=== PATIENT | male | born 1990 | race Caucasian/White ===

== ENCOUNTER → 2017-02-13 | Outpatient (CLI) | payer OTHER ==
[2017-02-13 18:55] LABS: ALT 42 U/L (21-72); AST 30 U/L (17-59); Alkaline Phosphatase 80 U/L (38-126); Anion Gap 12 mmol/L; Blood Urea Nitrogen 15 mg/dL (9-20); Calcium 9.9 mg/dL (8.4-10.2); Carbon Dioxide 29 mmol/L (22-30); Chloride 103 mmol/L (98-107); Cholesterol 166 mg/dL (<200); Glucose 82 mg/dL (74-99); HDL Cholesterol 36 mg/dL (40-60); Non-African American GFR(MDRD) >60 (>60 ml/min/1.73 sqM); Potassium 4.1 mmol/L (3.5-5.1); Sodium 144 mmol/L (137-145); Total Bilirubin 0.6 mg/dL (0.2-1.3); Total Protein 8.2 g/dL (6.3-8.2); Triglycerides 79 mg/dL (<150)
[2017-02-13 19:06] LABS: Basophils # (A) 0.1 k/uL (0-0.2); Basophils % (A) 1 %; CH 29.3; CHCM 33.5; Eosinophils # (A) 0.1 k/uL (0-0.7); Eosinophils % (A) 2 %; HCT 43.7 % (39.0-53.0); HGB 14.2 gm/dL (13.0-17.5); Luc # (Auto) 0.08; Luc % (Auto) 1; Lymphocytes # (A) 1.5 k/uL (1.0-4.8); Lymphocytes % (A) 26 %; MCH 28.5 pg (25.0-35.0); MCHC 32.5 g/dL (31.0-37.0); MCV 87.8 fL (80.0-100.0); Mean Platelet Volume 9.9; Monocytes # (A) 0.6 k/uL (0-1.0); Monocytes % (A) 10 %; Neutrophils # (A) 3.4 k/uL (1.3-7.7); Neutrophils % (A) 60 %; RBC 4.97 m/uL (4.30-5.90); RDW 12.6 % (11.5-15.5); WBC 5.8 k/uL (3.8-10.6); WBC (Perox) 5.94
== END ==
LOC: MMGSC 10:11
PROVIDERS: ATTEND Family Medicine
DX: Z00.00 Encounter for general adult medical examination without abnormal findings (principal)
CPT/HCPCS: 36415; 80053; 80061; 84439; 84443; 85025

== ENCOUNTER → 2017-07-19 | Outpatient (CLI) | payer OTHER ==
--- NOTE | 2017-07-19 15:17 | XR ---
Left clavicle HISTORY: Pain, injury 2 views of the left clavicle correlated to chest x-ray 05/05/2014 No interval change. Bone mineralization maintained, alignment is normal. Left lung apex as visualized is normal. There is a spinal curvature. IMPRESSION: No fracture or dislocation is evident, follow-up as indicated.
--- NOTE | 2017-07-19 15:18 | XR ---
Lumbar spine HISTORY: Pain, low back pain 3 views of the lumbar spine Lumbar vertebral bodies show preserved height, alignment, and bone mineralization. Disc spaces are ma intained. Sclerotic density in the left ilium may represent bone island. IMPRESSION: No acute fracture or subluxation. Additional findings above.
--- NOTE | 2017-07-19 15:19 | XR ---
Thoracic spine HISTORY: Pain in thoracic spine 3 views of the thoracic spine Comparison the lumbar spine same date There is a mild spinal curvature. Thoracic vertebral bodies show preserved height, alignment, and bon e mineralization. Disc spaces are maintained. IMPRESSION: Mild spinal curvature.
== END | disposition home or self-care (01) ==
LOC: RADXRMAIN 13:51
PROVIDERS: ATTEND Family Medicine
DX: M43.9 Deforming dorsopathy, unspecified (principal); M54.2 Cervicalgia; M54.5 Low back pain; R07.2 Precordial pain
CPT/HCPCS: 72072; 72100

== ENCOUNTER → 2019-10-29 | Outpatient (CLI) | payer OTHER ==
[2019-10-29 16:46] LABS: HCT 42.2 % (39.0-53.0); HGB 14.3 gm/dL (13.0-17.5); MCH 29.2 pg (25.0-35.0); MCHC 33.8 g/dL (31.0-37.0); MCV 86.6 fL (80.0-100.0); Mean Platelet Volume 8.2; Platelet Count 239 k/uL (150-450); RBC 4.88 m/uL (4.30-5.90); RDW 12.3 % (11.5-15.5); WBC 6.6 k/uL (3.8-10.6)
[2019-10-30 00:27] LABS: T4, Free (Free Thyroxine) 1.2 ng/dL (0.80-1.80)
[2019-10-30 00:29] LABS: Albumin 4.8 g/dL (3.80-4.90); Anion Gap 9.1 mmol/L (4.00-12.00); Calcium 9.7 mg/dL (8.7-10.3); Carbon Dioxide 27.9 mmol/L (21.6-31.8); Chol/HDL Ratio 3.22; Globulin 2.4 g/dL (1.6-3.3); LDL Cholesterol,Calculated 110.4 mg/dL (0.0-131.0); Non-African American GFR(CKD) 102.7 (60.0-200.0); Potassium 3.6 mmol/L (3.5-5.5); Total Bilirubin 1.3 mg/dL (0.2-1.2); Total Protein 7.2 g/dL (6.2-8.2); VLDL Calculation 11.6 mg/dL (5.00-40.00)
== END | disposition home or self-care (01) ==
LOC: LABWHC1 15:38
PROVIDERS: ATTEND Family Medicine
DX: Z00.00 Encounter for general adult medical examination without abnormal findings (principal)
CPT/HCPCS: 36415; 80053; 80061; 84439; 84443; 85027

== ENCOUNTER 2022-02-21 20:19 | Emergency (ER) | payer BC ==
[2022-02-21 22:02] VITALS: RESP 18
--- NOTE | 2022-02-21 22:23 | XR ---
EXAMINATION TYPE: XR foot complete LT DATE OF EXAM: 02/21/2022 COMPARISON: NONE HISTORY: Pain TECHNIQUE: 3 views FINDINGS: Metatarsals are intact. I see no fracture nor dislocation. There are no erosions. Joint spa cele are normal. IMPRESSION: Negative left foot exam
[2022-02-21] MEDS ORDERED: TOPICAL SKIN ADHESIVE 1 EACH AMP TOPICAL ONE (22:56)
[2022-02-21] MEDS ORDERED: LIDOCAINE/EPINEPHR/TETRACAINE 5 ML BOTTLE TOPICAL ONE (22:56)
--- NOTE | 2022-02-21 23:21 | ED ---
Wound/Laceration HPI - General Chief Complaint: Wound/Laceration Stated Complaint: R foot injury Time Seen by Provider: 02/21/22 22:44 Source: patient, RN notes reviewed Mode of arrival: ambulatory - History of Present Illness Initial Comments: This is a 31-year-old male who presents to the emergency department for a laceration to the left foot. Patient states that he had a piece of glass on the right foot, and he used his left foot to try to get it off and in the process ended up lacerating the left foot. Patient states that this was very bloody and it is very painful to the touch. Last tetanus vaccine was less than a year ago. Extremity Location: Left: Foot Place: home Patient Tetanus UTD: Yes Context: accidental Treatments Prior to Arrival: bandage - Related Data Previous Rx's Medication Instructions Recorded Cephalexin [Keflex] 1,000 mg PO Q12HR 3 Days #12 cap 02/22/22 Allergies Allergy/AdvReac Type Severity Reaction Status Date / Time No Known Allergies Allergy Verified 02/21/22 23:06 Review of Systems ROS Statement: Those systems with pertinent positive or pertinent negative responses have been documented in the HPI. ROS Other: All systems not noted in ROS Statement are negative. Constitutional: Denies: fever, chills ENT: Denies: ear pain, throat pain Respiratory: Denies: cough, dyspnea Cardiovascular: Denies: chest pain, palpitations Gastrointestinal: Denies: abdominal pain, nausea, vomiting, diarrhea Genitourinary: Denies: urgency, dysuria Musculoskeletal: Denies: back pain Skin: Reports: other (laceration). Denies: rash Past Medical History Past Medical History: No Reported History History of Any Multi-Drug Resistant Organisms: None Reported Past Surgical History: Appendectomy Past Psychological History: Anxiety Past Alcohol Use History: None Reported Past Drug Use History: None Reported General Exam Limitations: no limitations General appearance: alert, in no apparent distress Respiratory exam: Present: normal lung sounds bilaterally. Absent: respiratory distress, wheezes, rales, rhonchi, stridor Cardiovascular Exam: Present: regular rate, normal rhythm, normal heart sounds. Absent: systolic murmur, diastolic murmur, rubs, gallop, clicks Neurological exam: Present: alert, oriented X3, CN II-XII intact Psychiatric exam: Present: normal affect, normal mood Skin exam: Present: other (Superficial 2 cm laceration on the dorsal surface of the left forefoot foot just inferior to toes 1 and 2.) Course Vital Signs 02/21/22 21:58 Temperature 97.7 F Pulse Rate 52 L Respiratory 18 Rate Blood Pressure 116/72 O2 Sat by Pulse 98 Oximetry Medical Decision Making - Medical Decision Making This is a 31-year-old male who presents the emergency department for a laceration to the left foot. X-ray obtained revealing no fractures, foreign bodies, or other acute changes. Exofin was used to close the wound and Steri- Strips were placed on top. Tetanus vaccine was less than a year ago and does not need to be updated. Given that this was a dirty piece of glass, will put the patient on a 3 day course of Keflex. Return precautions reviewed in depth, the patient is instructed to return to the emergency department with any new, worsening, or concerning symptoms. Patient verbalized understanding. This case was discussed in detail with the attending ED physician. Presentation, findings, and treatment plan discussed in detail as well. - Radiology Data Radiology results: report reviewed, image reviewed Disposition Clinical Impression: Laceration of foot Disposition: HOME SELF-CARE Instructions (If sedation given, give patient instructions): Laceration (ED), Skin Adhesive Care (ED) Additional Instructions: Return to the emergency department with any new, worsening, or concerning symptoms. Take the antibiotic as prescribed for 3 days. Follow up with your primary care provider in 1 to 2 days. Is patient prescribed a controlled substance at d/c from ED?: No Referrals: None,Stated [Primary Care Provider] - 1-2 days
[2022-02-22 00:33] VITALS: BP 120/68; PULSE 47; TEMP 97.8
== END 2022-02-22 00:34 | disposition home or self-care (01) ==
LOC: EC 20:19
DX: S91.311A Laceration without foreign body, right foot, initial encounter (principal); W25.XXXA Contact with sharp glass, initial encounter; Y92.009 Unspecified place in unspecified non-institutional (private) residence as the place of occurrence of the external cause
CPT/HCPCS: 99283

== ENCOUNTER 2022-05-12 14:58 | Emergency (ER) | payer BC, OTHER ==
[2022-05-12 15:15] VITALS: BP 125/74; PULSE 71; RESP 20; TEMP 98.1
[2022-05-12] MEDS ORDERED: BACITRACIN OINT 1 EACH PACKET TOPICAL ONE (16:25)
[2022-05-12] MEDS ORDERED: DIPH,PERTUS(ACELL)TETVAC-LF 0.5 ML VIAL IM ONE (16:25)
--- NOTE | 2022-05-12 16:26 | ED ---
Wound/Laceration HPI - General Chief Complaint: Wound/Laceration Stated Complaint: Work injury-hand Time Seen by Provider: 05/12/22 16:05 Source: patient Mode of arrival: ambulatory Limitations: no limitations - History of Present Illness Initial Comments: This is a pleasant, [id number] 32-year-old male who cut his left hand, palmar aspect on metallic equipment at work this morning. Patient was able to work the balance of shift. Unknown last tetanus. Denies any other injuries. Wound to the palmar aspect. Denies any significant pain. Patient did clean the wound initially. No distal paresthesias. No distal proximal injuries. Patient has no other significant health issues. No headache, no fever or chills, no changes in vision or hearing, no sore throat or difficulty with speech, no neck pain, no chest pain or shortness of breath, no abdominal pain, no nausea or vomiting, no changes in urination or bowel movements, no numbness or tingling, no extremity pain, no skin rashes or lesions. Past medical, surgical, social, and family history reviewed. - Related Data Previous Rx's Medication Instructions Recorded Cephalexin [Keflex] 1,000 mg PO Q12HR 3 Days #12 cap 02/22/22 Allergies Allergy/AdvReac Type Severity Reaction Status Date / Time No Known Allergies Allergy Verified 05/12/22 15:15 Review of Systems ROS Statement: Those systems with pertinent positive or pertinent negative responses have been documented in the HPI. ROS Other: All systems not noted in ROS Statement are negative. Past Medical History Past Medical History: No Reported History History of Any Multi-Drug Resistant Organisms: None Reported Past Surgical History: Appendectomy Past Psychological History: Anxiety Past Alcohol Use History: None Reported Past Drug Use History: None Reported General Exam Limitations: no limitations General appearance: alert, in no apparent distress Head exam: Present: atraumatic, normocephalic, normal inspection Eye exam: Present: normal appearance, EOMI Neck exam: Present: normal inspection Respiratory exam: Absent: respiratory distress GI/Abdominal exam: Absent: distended Left Elbow exam: Present: normal inspection, full ROM. Absent: tenderness Forearm Wrist exam: Present: normal inspection, full ROM. Absent: tenderness Hand Wrist exam: Present: full ROM, laceration (Superficial laceration, 2 cm to the palmar aspect left hand with a devitalized skin flap involving only the epidermis. No active bleeding. No foreign body.). Absent: normal inspection, tenderness, swelling, abrasion, ecchymosis, deformity, crepitus, dislocation, erythema, amputation, nail avulsion, subungual hematoma Neuro motor exam: Present: wrist extension intact, thumb opposition intact, thumb IP flexion intact, thumb adduction intact, fingers 2-5 abduction intact Neurosensory exam: Present: radial nerve intact, ulnar nerve intact, median nerve intact Vascular: Present: normal capillary refill. Absent: vascular compromise, Pallo Back exam: Present: normal inspection Neurological exam: Present: alert, oriented X3, CN II-XII intact. Absent: motor sensory deficit Psychiatric exam: Present: normal affect, normal mood Skin exam: Present: warm, dry, normal color. Absent: rash Course Vital Signs 05/12/22 15:13 Temperature 98.1 F Pulse Rate 71 Respiratory 20 Rate Blood Pressure 125/74 O2 Sat by Pulse 99 Oximetry Procedures - Procedures Initial comment: Left hand was prepped and draped in sterile fashion. Wound was cleansed thoroughly with antibacterial soap and water. A 2 x 2 centimeter area of devitalized tissue was debrided using sterile forceps and a #10 blade scalpel. Patient tolerated well. Antibiotic ointment applied. Sterile dressing applied. Medical Decision Making - Medical Decision Making Superficial laceration to palmar aspect with him requiring only debridement and wound care. No repair indicated. He Was updated. Patient counseled on wound care. Counseled on signs and symptoms of infection. Patient was told to return to the ER for any signs or symptoms worsen. Told to return immediately if any other problems arise. All questions answered. Treatment plan discussed. Patient in agreement Every effort has been made to ensure accuracy of this dictation. However, due to the limitations of electronic medical records and dictation devices, errors in charting still occur. Patient to follow-up with the occupational medicine clinic. [facility] Dr. Patel Disposition Clinical Impression: Laceration of left hand without foreign body Disposition: HOME SELF-CARE Condition: Good Instructions (If sedation given, give patient instructions): Acute Wound Care (ED) Additional Instructions: Follow-up with your regular physician as directed. Return to the ER immediately if any symptoms worsen, new symptoms arise, or any other problems develop. Follow-up with the occupational medicine clinic or [facility] as directed by your global human resources director Is patient prescribed a controlled substance at d/c from ED?: No Referrals: None,Stated [Primary Care Provider] - 1-2 days Time of Disposition: 16:26
== END 2022-05-12 16:45 | disposition home or self-care (01) ==
LOC: EC 14:58
DX: S61.412A Laceration without foreign body of left hand, initial encounter (principal); F41.9 Anxiety disorder, unspecified; W31.89XA Contact with other specified machinery, initial encounter
CPT/HCPCS: 12001; 90471; 90715; 99282

== ENCOUNTER 2022-10-02 05:35 | Emergency (ER) | payer BC ==
[2022-10-02 05:43] VITALS: BP 132/80; PULSE 69; RESP 18; TEMP 97.8
[2022-10-02] MEDS ORDERED: LIDOCAINE 1% INJ 10MG/ML (30 ML VIAL-PF) SQ ONE (06:18)
[2022-10-02] MEDS ORDERED: SULFAMETH-TMP DS STARTER PACK 2 TAB BTL PO STA (06:33)
[2022-10-02] MEDS ORDERED: CEPHALEXIN 500MG STARTER PACK 4 CAP BTL PO STA (06:33)
[2022-10-02] MEDS ORDERED: ACET/COD 300 MG/30 MG STARTER PACK 6 TAB BTL PO STA (06:34)
--- NOTE | 2022-10-02 06:35 | ED ---
Skin/Abscess/FB HPI - General Chief complaint: Skin/Abscess/Foreign Body Stated complaint: Abscess in groin area Time Seen by Provider: 10/02/22 06:00 Source: patient, RN notes reviewed Mode of arrival: ambulatory Limitations: no limitations - History of Present Illness Initial comments: 32-year-old male presents emergency Department chief complaint of abscess. Patient states he has a history of these. Patient states he had 1 in a similar location. Patient states it started a few days ago in the right groin. Patient states it is painful, red and swollen. Patient said no drainage has been doing warm compresses. Patient offers no other associated complaints. Patient has no history of MRSA NO KNOWN DRUG ALLERGIES. - Related Data Previous Rx's Medication Instructions Recorded Cephalexin [Keflex] 1,000 mg PO Q12HR 3 Days #12 cap 02/22/22 Cephalexin [Keflex] 500 mg PO Q6HR #40 cap 10/02/22 Sulfamethox-Tmp 800-160Mg [Bactrim 1 each PO Q12HR #20 tab 10/02/22 Ds] Allergies Allergy/AdvReac Type Severity Reaction Status Date / Time No Known Allergies Allergy Verified 10/02/22 05:43 Review of Systems ROS Statement: Those systems with pertinent positive or pertinent negative responses have been documented in the HPI. ROS Other: All systems not noted in ROS Statement are negative. Past Medical History Past Medical History: No Reported History History of Any Multi-Drug Resistant Organisms: None Reported Past Surgical History: Appendectomy Past Psychological History: Anxiety Smoking Status: Never smoker Past Alcohol Use History: None Reported Past Drug Use History: None Reported General Exam Limitations: no limitations General appearance: alert, in no apparent distress Head exam: Present: atraumatic, normocephalic, normal inspection Eye exam: Present: normal appearance, PERRL, EOMI. Absent: scleral icterus, conjunctival injection, periorbital swelling ENT exam: Present: normal exam, normal oropharynx, mucous membranes moist Neck exam: Present: normal inspection. Absent: tenderness, meningismus, lymphadenopathy Respiratory exam: Present: normal lung sounds bilaterally. Absent: respiratory distress, wheezes, rales, rhonchi, stridor Cardiovascular Exam: Present: regular rate, normal rhythm, normal heart sounds. Absent: systolic murmur, diastolic murmur, rubs, gallop, clicks GI/Abdominal exam: Present: soft, normal bowel sounds. Absent: distended, tenderness, guarding, rebound, rigid Skin exam: Present: warm, dry, intact, normal color, other (Right superior to right groin there is a 2 cm abscess minimal fluctuant, erythematous). Absent: rash Course Vital Signs 10/02/22 05:42 Temperature 97.8 F Pulse Rate 69 Respiratory 18 Rate Blood Pressure 132/80 O2 Sat by Pulse 99 Oximetry Procedures - Incision & Drainage Consent Obtained: written consent Site: other (Right suprapubic) Size (cm): 2 Anesthetic Used: lidocaine 1%, without epi Amount (mLs): 8 I&D Cleaning Method: Alcohol Wipe Sterile Field Used?: No Scalpel Used: #11 Irrigation Performed?: Yes I&D Drainage Obtained: Pus, Blood Culture Obtained?: Yes Patient Tolerated Procedure: well, no complications, other (Loculations were broken) Medical Decision Making - Medical Decision Making 32-year-old male presented from for abscess I&D was performed patient tolerated well we discuss warm compresses, patient was started on antibiotics, pain control return parameters discussed wound culture was obtained. Disposition Clinical Impression: Abscess, groin Disposition: HOME SELF-CARE Condition: Stable Instructions (If sedation given, give patient instructions): Abscess Incision and Drainage (ED) Additional Instructions: Please return to the Emergency Department if symptoms worsen or any other concerns. Prescriptions: Sulfamethox-Tmp 800-160Mg [Bactrim Ds] 1 each PO Q12HR #20 tab Cephalexin [Keflex] 500 mg PO Q6HR #40 cap Is patient prescribed a controlled substance at d/c from ED?: No Referrals: Evangelista Jaeger DO [Primary Care Provider] - 1-2 days Time of Disposition: 06:35
== END 2022-10-02 06:47 | disposition home or self-care (01) ==
LOC: EC 05:35
DX: L02.214 Cutaneous abscess of groin (principal); F41.9 Anxiety disorder, unspecified
CPT/HCPCS: 87070; 87205; 99283; 10060; J2001; 87077; 87186

== ENCOUNTER 2022-11-09 16:50 | Emergency (ER) | payer BC ==
[2022-11-09 16:54] VITALS: BP 129/80; PULSE 82; RESP 16; TEMP 98.6
--- NOTE | 2022-11-09 17:15 | ED ---
Upper Extremity HPI - General Chief Complaint: Extremity Injury, Upper Stated Complaint: R. Elbow Pain Time Seen by Provider: 11/09/22 17:02 Source: patient, RN notes reviewed Mode of arrival: ambulatory Limitations: no limitations - History of Present Illness Initial Comments: This is a pleasant, [id number] 32-year-old male who presents emergent department complaining of right elbow pain for the last 6 months. Patient indicating this pain at the area of the lateral epicondyle which is exacerbated by movement and palpation. Patient does work as a Head and performs repetitive motion. Patient states he's been taking [id number]-[id number] medication. Wearing a cup or sleeve. And wearing a tennis elbow strap. He did see his regular physician previously and was told he had tendinitis. No chest pain or shortness of breath. No fever or chills. No break in skin integrity. No subsequent or direct trauma. No significant past medical history. No alcohol or drug abuse. Nonsmoker. MD Complaint: Injury to:: right, elbow - Related Data Previous Rx's Medication Instructions Recorded Cephalexin [Keflex] 1,000 mg PO Q12HR 3 Days #12 cap 02/22/22 Cephalexin [Keflex] 500 mg PO Q6HR #40 cap 10/02/22 Sulfamethox-Tmp 800-160Mg [Bactrim 1 each PO Q12HR #20 tab 10/02/22 Ds] Allergies Allergy/AdvReac Type Severity Reaction Status Date / Time No Known Allergies Allergy Verified 10/02/22 05:43 Review of Systems ROS Statement: Those systems with pertinent positive or pertinent negative responses have been documented in the HPI. ROS Other: All systems not noted in ROS Statement are negative. Past Medical History Past Medical History: No Reported History History of Any Multi-Drug Resistant Organisms: None Reported Past Surgical History: Appendectomy Past Psychological History: Anxiety Smoking Status: Never smoker Past Alcohol Use History: None Reported Past Drug Use History: None Reported General Exam - General Exam Comments Initial Comments: Patient in no distress. Vital signs stable, patient afebrile. Patient does not appear to be ill or toxic. Limitations: no limitations General appearance: alert, in no apparent distress Head exam: Present: atraumatic, normocephalic, normal inspection Eye exam: Present: normal appearance, EOMI Neck exam: Present: normal inspection Respiratory exam: Present: normal lung sounds bilaterally. Absent: respiratory distress, wheezes, rales, rhonchi, stridor Cardiovascular Exam: Present: regular rate, normal rhythm, normal heart sounds. Absent: systolic murmur, diastolic murmur, rubs, gallop, clicks GI/Abdominal exam: Absent: distended Extremities exam: Present: tenderness (Tenderness over the lateral epicondyle.), other (Increased pain with dorsiflexion of the right wrist as well as supination. No forearm or upper arm tenderness otherwise. No wrist tenderness. Pulses 2+ out of 4. Capillary refill less than 2 seconds. No erythema. No break in skin integrity) Course Vital Signs 11/09/22 16:51 Temperature 98.6 F Pulse Rate 82 Respiratory 16 Rate Blood Pressure 129/80 O2 Sat by Pulse 98 Oximetry Medical Decision Making - Medical Decision Making Was pt. sent in by a medical professional or institution? @ -No Did you speak to anyone other than the patient for history? @ -no Did you review nursing and triage notes? @ -Agree Were old charts reviewed? @ -no Differential Diagnosis? @ -Given the patient's presenting symptomology, right lateral epicondylitis most probable. Occult fracture possible. Tendon tear possible. Does not appear to be consistent with infectious etiology. EKG interpreted by me (3pts min.)? @ -Not applicable X-rays interpreted by me (1pt min.)? @ -X-rays of the right elbow independently interpreted by me show no evidence of acute fracture. No dislocation. No soft tissue changes. No osseous lesion. I did review the radiologist's interpretation. CT interpreted by me (1pt min.)? @ -[none] U/S interpreted by me (1pt. min.)? @ -[none] What testing was considered but not performed? (CT, X-rays, U/S, labs)? Why? @Not applicable What meds were considered but not given? Why? @ -[none] Did you discuss the management of the patient with other professionals? @ -None Did you reconcile home meds? @ -[none] Was smoking cessation discussed for >3mins.? @ -[none] Was critical care preformed (if so, how long)? @ -[none] Were there social determinants of health that impacted care today? How? (Homelessness, low income, unemployed, alcoholism, drug addiction, transportation, low edu. Level, literacy, decrease access to med. care, correction, rehab)? @ -No Was there de-escalation of care discussed even if they declined? (Discuss DNR or withdrawal of care, Hospice)? @ -no What co-morbidities impacted this encounter? (DM, HTN, Smoking, COPD, CAD, Cancer, CVA, Hep., AIDS, mental health diagnosis, sleep apnea, morbid obesity)? @ -none Was patient admitted / discharged? @ -Discharged Undiagnosed new problem with uncertain prognosis? @ -[none] Drug Therapy requiring intensive monitoring for toxicity (Heparin, Nitro, Insulin, Cardizem)? @ -[none] Were any procedures done? @ -[none] Diagnosis/symptom? @ -[default] Acute, or Chronic, or Acute on Chronic? @ -Chronic right elbow pain Uncomplicated (without systemic symptoms) or Complicated (systemic symptoms)? @ -Uncomplicated Side effects of treatment? @ -[none] Exacerbation, Progression, or Severe Exacerbation] @ -[no] Poses a threat to life or bodily function? @ -[no] Diagnosis/symptom? @ -Chronic right lateral epicondylitis Acute, or Chronic, or Acute on Chronic? @ -Chronic Uncomplicated (without systemic symptoms) or Complicated (systemic symptoms)? @ -Complicated Side effects of treatment? @ -[none] Exacerbation, Progression, or Severe Exacerbation] @ -[no] Poses a threat to life or bodily function? @ -[no] Patient symptomology going on for several months. We will treat conservatively and referred the patient for orthopedic evaluation. Patient concurs with this treatment plan. Voiced understanding. Follow-up with your regular physician as directed. Return to the ER immediately if any symptoms worsen, new symptoms arise, or any other problems develop. Disposition Clinical Impression: Right lateral epicondylitis, Dislocation of shoulder region Disposition: HOME SELF-CARE Condition: Good Instructions (If sedation given, give patient instructions): Tennis Elbow (ED) Additional Instructions: Call tomorrow morning to set up a follow-up appointment with the orthopedic physician. Continue the tennis elbow strap. Return to the ER immediately if any symptoms worsen, new symptoms arise, or any other problems develop. Is patient prescribed a controlled substance at d/c from ED?: No Referrals: Lena Castanon NPC [Nurse Practitioner] - 11/13/22 Time of Disposition: 17:54
--- NOTE | 2022-11-09 17:34 | XR ---
EXAMINATION TYPE: XR elbow complete RT DATE OF EXAM: 11/09/2022 CLINICAL HISTORY: Pain. TECHNIQUE: Frontal, lateral and oblique images of the right elbow are obtained. COMPARISON: None FINDINGS: There is no acute fracture/dislocation evident in the right elbow. No abnormal fat pad si gns are seen. The overlying soft tissue appears unremarkable. IMPRESSION: Unremarkable study.
== END 2022-11-09 18:07 | disposition home or self-care (01) ==
LOC: EC 16:50
DX: S43.004A Unspecified dislocation of right shoulder joint, initial encounter (principal); M77.11 Lateral epicondylitis, right elbow; F41.9 Anxiety disorder, unspecified; Z90.49 Acquired absence of other specified parts of digestive tract; X58.XXXA Exposure to other specified factors, initial encounter
CPT/HCPCS: 99283

== ENCOUNTER 2023-04-03 17:37 | Emergency (ER) | payer BC ==
[2023-04-03 20:33] LABS: Appearance,Urine Clear (Clear); Bilirubin,Urine Negative (Negative); Blood,Urine Negative (Negative); Color,Urine Yellow; Glucose,Urine (UA) Negative (Negative); Ketones,Urine Negative (Negative); Leukocyte Esterase,Urine Negative (Negative); Nitrite,Urine Negative (Negative); Protein,Urine Trace (Negative); Specific Gravity,Urine 1.032 (1.001-1.035)
--- NOTE | 2023-04-03 20:56 | ED ---
General Adult HPI - General Chief complaint: Urogenital Stated complaint: poss hemorrhoids Time Seen by Provider: 04/03/23 19:33 Source: patient Mode of arrival: EMS Limitations: no limitations - History of Present Illness Initial comments: 5-year-old male with no significant past medical history presenting with a chief complaint of hemorrhoid. Patient states over the past 2 or 3 days has had a hemorrhoid. Has recently started to use preparation H today. She notes that he has a "tingly" feeling at end of his penis. Denies dysuria hematuria or dis charge. Chest pain shortness of breath. No other complaints. - Related Data Home Medications Medication Instructions Recorded Confirmed No Known Home Medications 04/03/23 04/03/23 Allergies Allergy/AdvReac Type Severity Reaction Status Date / Time No Known Allergies Allergy Verified 10/02/22 05:43 Review of Systems ROS Statement: Those systems with pertinent positive or pertinent negative responses have been documented in the HPI. ROS Other: All systems not noted in ROS Statement are negative. Past Medical History Past Medical History: No Reported History History of Any Multi-Drug Resistant Organisms: None Reported Past Surgical History: Appendectomy Past Psychological History: Anxiety, Depression Smoking Status: Never smoker Past Alcohol Use History: None Reported Past Drug Use History: None Reported General Exam Limitations: no limitations General appearance: alert Head exam: Present: atraumatic, normocephalic Eye exam: Present: normal appearance Respiratory exam: Present: normal lung sounds bilaterally Cardiovascular Exam: Present: regular rate, normal rhythm GI/Abdominal exam: Present: soft Rectal exam: Present: other (Exam shows a nonthrombosed external hemorrhoid.) Neurological exam: Present: alert, oriented X3 Psychiatric exam: Present: normal affect, normal mood Skin exam: Present: warm, dry Course Vital Signs 04/03/23 17:45 Temperature 98.3 F Pulse Rate 59 L Respiratory 18 Rate Blood Pressure 131/76 O2 Sat by Pulse 99 Oximetry Medical Decision Making - Medical Decision Making Was pt. sent in by a medical professional or institution (HENRI Garcia, FENCE MANUFACTURE SUPERVISOR, urgent care, hospital, or usp...) When possible be specific @ -No Did you speak to anyone other than the patient for history (EMS, parent, family, police, friend...)? What history was obtained from this source @ -No Did you review nursing and triage notes (agree or disagree)? Why? @ -I reviewed and agree with nursing and triage notes Were old charts reviewed (outside hosp., previous admission, EMS record, old EKG, old radiological studies, urgent care reports/EKG's, usp records)? Report findings @ -No old charts were reviewed Differential Diagnosis (chest pain, altered mental status, abdominal pain women, abdominal pain men, vaginal bleeding, weakness, fever, dyspnea, syncope, headache, dizziness, GI bleed, back pain, seizure, CVA, palpatations, mental health, musculoskeletal)? @ -UTI, venereal disease, thrombosed hemorrhoid. This is not meant to be an all-inclusive list EKG interpreted by me (3pts min.). @ -None X-rays interpreted by me (1pt min.). @ -None done CT interpreted by me (1pt min.). @ -None done U/S interpreted by me (1pt. min.). @ -None done What testing was considered but not performed or refused? (CT, X-rays, U/S, labs)? Why? @ -None What meds were considered but not given or refused? Why? @ -None Did you discuss the management of the patient with other professionals (professionals i.e. , PA, FENCE MANUFACTURE SUPERVISOR, lab, RT, psych nurse, social media sr strategy manager, local area network systems adminstrator, teacher, special service officer, case assembler)? Give summary @ -No Was smoking cessation discussed for >3mins.? @ -No Was critical care preformed (if so, how long)? @ -No Were there social determinants of health that impacted care today? How? (Homelessness, low income, unemployed, alcoholism, drug addiction, transportation, low edu. Level, literacy, decrease access to med. care, nursing home, rehab)? @ -No Was there de-escalation of care discussed even if they declined (Discuss DNR or withdrawal of care, Hospice)? DNR status @ -No What co-morbidities impacted this encounter? (DM, HTN, Smoking, COPD, CAD, Cancer, CVA, ARF, Chemo, Hep., AIDS, mental health diagnosis, sleep apnea, morbid obesity)? @ -None Was patient admitted / discharged? Hospital course, mention meds given and route, prescriptions, significant lab abnormalities, going to OR and other pertinent info. @ -Discharged. Exam findings as above. UA showed no evidence of infection. Patient advised to continue Preparation H, in addition with of sitz bath, witch vladislav pads, and increasing fiber intake with Metamucil/fruits and vegetables. Discharged in stable condition. Discussed return precautions patient verbalized agreement. Undiagnosed new problem with uncertain prognosis? @ -No Drug Therapy requiring intensive monitoring for toxicity (Heparin, Nitro, Insulin, Cardizem)? @ -No Were any procedures done? @ -No Diagnosis/symptom? @ -External hemorrhoid, nonthrombosed Acute, or Chronic, or Acute on Chronic? @ -Acute Uncomplicated (without systemic symptoms) or Complicated (systemic symptoms)? @ -Uncomplicated Side effects of treatment? @ -No Exacerbation, Progression, or Severe Exacerbation? @ -No Poses a threat to life or bodily function? How? (Chest pain, USA, ID, pneumonia, PE, COPD, DKA, ARF, appy, cholecystitis, CVA, Diverticulitis, Homicidal, Suicidal, threat to staff... and all critical care pts) @ -No - Lab Data Lab Results 04/03/23 Range/Units 20:04 Urine Color Yellow Urine Appearance Clear (Clear) Urine pH 6.0 (5.0-8.0) Ur Specific [place] 1.032 (1.001-1.035) Urine Protein Trace H (Negative) Urine Glucose (UA) Negative (Negative) Urine Ketones Negative (Negative) Urine Blood Negative (Negative) Urine Nitrite Negative (Negative) Urine Bilirubin Negative (Negative) Urine Urobilinogen 2.0 (<2.0) mg/dL Ur Leukocyte Esterase Negative (Negative) Disposition Clinical Impression: Hemorrhoid Disposition: HOME SELF-CARE Condition: Good Instructions (If sedation given, give patient instructions): Hemorrhoids (ED) Is patient prescribed a controlled substance at d/c from ED?: No Referrals: Evangelista Jaeger DO [Primary Care Provider] - 1-2 days Time of Disposition: 20:56
[2023-04-03 21:03] VITALS: BP 125/70; PULSE 64; RESP 16; TEMP 98.7
== END 2023-04-03 21:27 | disposition home or self-care (01) ==
LOC: EC 17:37
DX: K64.4 Residual hemorrhoidal skin tags (principal)
CPT/HCPCS: 81003; 99283

== ENCOUNTER 2023-07-21 20:31 | Emergency (ER) | payer BC ==
[2023-07-21 20:42] VITALS: RESP 20; TEMP 99.5
[2023-07-21] MEDS ORDERED: SODIUM CHLORIDE 0.9% 1,000 ML IV ONE (21:22)
--- NOTE | 2023-07-21 22:00 | ED ---
General Adult HPI - General Chief complaint: Skin/Abscess/Foreign Body Stated complaint: Ingrown hair Time Seen by Provider: 07/21/23 20:43 Source: patient, RN notes reviewed Mode of arrival: ambulatory Limitations: no limitations - History of Present Illness Initial comments: 33-year-old male with no significant past medical history presents the emergency department with a chief complaint of abscess. Patient reports abscess to left glute. He reports worsening abscess for 3 days. It is painful to touch. He denies any injury or trauma. He has had this about once a year for the last couple years. He denies any self excision. Denies any known fevers, chills. He is not taken anything for his symptoms. He has been applying warm compresses without symptomatic relief. - Related Data Previous Rx's Medication Instructions Recorded Cephalexin [Keflex] 500 mg PO Q6HR #40 cap 07/21/23 Sulfamethox-Tmp 800-160Mg [Bactrim 1 each PO Q12HR #20 tab 07/21/23 Ds] Allergies Allergy/AdvReac Type Severity Reaction Status Date / Time No Known Allergies Allergy Verified 07/21/23 20:35 Review of Systems ROS Statement: Those systems with pertinent positive or pertinent negative responses have been documented in the HPI. ROS Other: All systems not noted in ROS Statement are negative. Past Medical History Past Medical History: No Reported History History of Any Multi-Drug Resistant Organisms: None Reported Past Surgical History: Appendectomy Past Psychological History: Anxiety, Depression Smoking Status: Never smoker Past Alcohol Use History: Occasional Past Drug Use History: None Reported General Exam - General Exam Comments Initial Comments: General: Alert, in no acute distress Head: atraumatic normocephalic. Eyes PERRL, EOMI intact, mucous membranes moist Respiratory: Lungs clear to auscultation bilaterally Cardiovascular: The cardiac Abdominal: Soft without guarding or rebound Extremities: Normal inspection with full range of motion and normal capillary refill Neuroogic: alert and oriented 3, CN II-XII intact, able to ambulate with steady gait Skin: warm dry and intact with normal color, 4cm x4 cm circular erythematous hard immobile, tender area to left flute. Left groin with 1 x 1 cm circular nontender, non-Mobile lesion without erythema Limitations: no limitations Course Vital Signs 07/21/23 07/22/23 20:32 00:51 Temperature 99.5 F Pulse Rate 115 H 98 Respiratory 20 20 Rate Blood Pressure 116/70 100/60 O2 Sat by Pulse 100 98 Oximetry - Reevaluation(s) Reevaluation #1: 07/22/23 00:03 Patient reevaluated. She is agreeable with the plan for discharge home with outpatient ABX Medical Decision Making - Medical Decision Making Was pt. sent in by a medical professional or institution (, HENRI, PRODUCTION LEADER, urgent care, hospital, or longterm...) When possible be specific @ -[No] Did you speak to anyone other than the patient for history (EMS, parent, family, police, friend...)? What history was obtained from this source @ -[No] Did you review nursing and triage notes (agree or disagree)? Why? @ -[I reviewed and agree with nursing and triage notes] Were old charts reviewed (outside hosp., previous admission, EMS record, old EKG, old radiological studies, urgent care reports/EKG's, longterm records)? Report findings @ -[No old charts were reviewed] Differential Diagnosis (chest pain, altered mental status, abdominal pain women, abdominal pain men, vaginal bleeding, weakness, fever, dyspnea, syncope, h eadache, dizziness, GI bleed, back pain, seizure, CVA, palpatations, mental health, musculoskeletal)? @ -[not applicable] EKG interpreted by me (3pts min.). @ -[As above] X-rays interpreted by me (1pt min.). @ -[None done] CT interpreted by me (1pt min.). @ -yes, below U/S interpreted by me (1pt. min.). @ -[None done] What testing was considered but not performed or refused? (CT, X-rays, U/S, labs)? Why? @ -[None] What meds were considered but not given or refused? Why? @ -[None] Did you discuss the management of the patient with other professionals (professionals i.e. HENRI Garcia, PRODUCTION LEADER, lab, RT, psych nurse, social and human services assistant, immersion metal cleaner, teacher, traffic division commanding officer, case folder)? Give summary @ -[No] Was smoking cessation discussed for >3mins.? @ -[No] Was critical care preformed (if so, how long)? @ -[No] Were there social determinants of health that impacted care today? How? (Homelessness, low income, unemployed, alcoholism, drug addiction, transportation, low edu. Level, literacy, decrease access to med. care, prison, rehab)? @ -[No] Was there de-escalation of care discussed even if they declined (Discuss DNR or withdrawal of care, Hospice)? DNR status @ -[No] What co-morbidities impacted this encounter? (DM, HTN, Smoking, COPD, CAD, Ca ncer, CVA, ARF, Chemo, Hep., AIDS, mental health diagnosis, sleep apnea, morbid obesity)? @ -[None] Was patient admitted / discharged? Hospital course, mention meds given and route, prescriptions, significant lab abnormalities, going to OR and other pertinent info. @ -Discharge. This is a pleasant 33-year-old male with no signifi cant past medical history presents the emergency department with abscess. Patient had a thorough history and physical exam performed. Physical exam reveals a 4 x 4 circular area erythema that is tender and hard immobile. Nonfluctuant. Patient had laboratory studies which revealed WBC 12.5, hemog lobin 13.2 sodium 137, potassium 2.[address] does not reveal any evidence of gluteal perineal abscess there is slight minus change ingesting along the posterior left buttock there is also fullness tingling to the left inguinal region with enlarged lymph nodes I discussed results in detail with the patient verbalized understanding all questions were addressed. He is agreeable with the plan for outpatient antibiotics. Patient given Keflex and Bactrim on the ED. Patient provided a prescription for Keflex and Bactrim upon discharge. Strict Return precautions were discussed including high fever, worsening abscess, or redness that developed to the area. Patient then started to return to the emergency department is abscess or symptoms worsen. Case discussed with IVONNE Meraz who agrees with plan of care Undiagnosed new problem with uncertain prognosis? @ -[No] Drug Therapy requiring intensive monitoring for toxicity (Heparin, Nitro, Insulin, Cardizem)? @ -[No] Were any procedures done? @ -[No] Diagnosis/symptom? @ -Left Gluteal abscess Acute, or Chronic, or Acute on Chronic? @ -Acute Uncomplicated (without systemic symptoms) or Complicated (systemic symptoms)? @ -Uncomplicated Side effects of treatment? @ -[No] Exacerbation, Progression, or Severe Exacerbation? @ -[No] Poses a threat to life or bodily function? How? (Chest pain, USA, [place], pneumonia, PE, COPD, DKA, ARF, appy, cholecystitis, CVA, Diverticulitis, Homicidal, Suicidal, threat to staff... and all critical care pts) @ -Low likelihood - Lab Data Result diagrams: 07/21/23 21:44 07/21/23 21:44 Lab Results 07/21/23 07/21/23 07/21/23 Range/Units 21:44 21:44 21:44 WBC 12.5 H (3.8-10.6) k/uL RBC 4.49 (4.30-5.90) m/uL Hgb 13.2 (13.0-17.5) gm/dL Hct 38.8 L (39.0-53.0) % MCV 86.3 (80.0-100.0) fL MCH 29.5 (25.0-35.0) pg MCHC 34.2 (31.0-37.0) g/dL RDW 12.1 (11.5-15.5) % Plt Count 218 (150-450) k/uL MPV 8.5 Neutrophils % 80 % Lymphocytes % 11 % Monocytes % 7 % Eosinophils % 1 % Basophils % 1 % Neutrophils # 10.0 H (1.3-7.7) k/uL Lymphocytes # 1.4 (1.0-4.8) k/uL Monocytes # 0.9 (0-1.0) k/uL Eosinophils # 0.1 (0-0.7) k/uL Basophils # 0.1 (0-0.2) k/uL Sodium 137 (137-145) mmol/L Potassium 3.6 (3.5-5.1) mmol/L Chloride 101 (98-107) mmol/L Carbon Dioxide 32 H (22-30) mmol/L Anion Gap 4 mmol/L BUN 10 (9-20) mg/dL Creatinine 0.66 (0.66-1.25) mg/dL Est GFR (CKD-EPI)AfAm >90 (>60 ml/min/1.73 sqM) Est GFR (CKD-EPI)NonAf >90 (>60 ml/min/1.73 sqM) Glucose 83 (74-99) mg/dL Calcium 8.7 (8.4-10.2) mg/dL Total Bilirubin 0.6 (0.2-1.3) mg/dL AST 26 (17-59) U/L ALT 37 (4-49) U/L Alkaline Phosphatase 53 (38-126) U/L Total Protein 6.0 L (6.3-8.2) g/dL Albumin 3.6 (3.5-5.0) g/dL Urine Color Yellow Urine Appearance Clear (Clear) Urine pH 6.0 (5.0-8.0) Ur Specific [place] 1.029 (1.001-1.035) Urine Protein Trace H (Negative) Urine Glucose (UA) Negative (Negative) Urine Ketones Negative (Negative) Urine Blood Negative (Negative) Urine Nitrite Negative (Negative) Urine Bilirubin Negative (Negative) Urine Urobilinogen <2.0 (<2.0) mg/dL Ur Leukocyte Esterase Negative (Negative) Disposition Clinical Impression: Abscess, gluteal, left Disposition: HOME SELF-CARE Condition: Stable Instructions (If sedation given, give patient instructions): Abscess (ED) Prescriptions: Sulfamethox-Tmp 800-160Mg [Bactrim Ds] 1 each PO Q12HR #20 tab Cephalexin [Keflex] 500 mg PO Q6HR #40 cap Is patient prescribed a controlled substance at d/c from ED?: No Referrals: Evangelista Jaeger DO [Primary Care Provider] - 1-2 days Time of Disposition: 11:58
[2023-07-21 22:39] LABS: ALT 37 U/L (4-49); AST 26 U/L (17-59); African American GFR (CKD) >90 (>60 ml/min/1.73 sqM); Albumin 3.6 g/dL (3.5-5.0); Alkaline Phosphatase 53 U/L (38-126); Anion Gap 4 mmol/L; Blood Urea Nitrogen 10 mg/dL (9-20); Calcium 8.7 mg/dL (8.4-10.2); Carbon Dioxide 32 mmol/L (22-30); Chloride 101 mmol/L (98-107); Glucose 83 mg/dL (74-99); Non-African American GFR(CKD) >90 (>60 ml/min/1.73 sqM); Potassium 3.6 mmol/L (3.5-5.1); Sodium 137 mmol/L (137-145); Total Bilirubin 0.6 mg/dL (0.2-1.3)
[2023-07-21 22:42] LABS: Basophils # (A) 0.1 k/uL (0-0.2); Basophils % (A) 1 %; Eosinophils # (A) 0.1 k/uL (0-0.7); Eosinophils % (A) 1 %; HCT 38.8 % (39.0-53.0); HGB 13.2 gm/dL (13.0-17.5); Lymphocytes # (A) 1.4 k/uL (1.0-4.8); Lymphocytes % (A) 11 %; MCH 29.5 pg (25.0-35.0); MCHC 34.2 g/dL (31.0-37.0); MCV 86.3 fL (80.0-100.0); Mean Platelet Volume 8.5; Monocytes # (A) 0.9 k/uL (0-1.0); Monocytes % (A) 7 %; Neutrophils % (A) 80 %; Platelet Count 218 k/uL (150-450); RBC 4.49 m/uL (4.30-5.90); RDW 12.1 % (11.5-15.5); WBC 12.5 k/uL (3.8-10.6)
[2023-07-21 23:27] LABS: Appearance,Urine Clear (Clear); Bilirubin,Urine Negative (Negative); Blood,Urine Negative (Negative); Color,Urine Yellow; Glucose,Urine (UA) Negative (Negative); Ketones,Urine Negative (Negative); Leukocyte Esterase,Urine Negative (Negative); Nitrite,Urine Negative (Negative); Protein,Urine Trace (Negative); Specific Gravity,Urine 1.029 (1.001-1.035); Urobilinogen,Urine <2.0 mg/dL (<2.0)
[2023-07-21] MEDS ORDERED: cefTRIAXone 1,000 MG VIAL (IM USE) IM STA (23:46)
--- NOTE | 2023-07-21 23:48 | CT ---
EXAMINATION TYPE: CT pelvis w con CT DLP: 631 mGycm, Automated exposure control for dose reduction was used. DATE OF EXAM: 07/21/2023 10:35 PM COMPARISON: None. CLINICAL INDICATION:Male, 33 years old with history of left gluteal abscess; TECHNIQUE: Axial CT of the abdomen . Sagittal and coronal reformats were created on a separate works tation. Contrast used: 100 cc Isovue-300 (none if empty) Oral contrast used: (none if empty) FINDINGS: BLADDER: Unremarkable REPRODUCTIVE: Prostate is enlarged in size measuring 5.0 cm in transverse dimension. ABDOMEN & PELVIS STOMACH AND BOWEL: No evidence of bowel obstruction. PERITONEUM/RETROPERITONEUM: No evidence of pneumoperitoneum or free fluid. VASCULATURE: No evidence of aortic aneurysm. MUSCULOSKELETAL: No acute osseous abnormalities LYMPH NODES: No gross evidence for lymphadenopathy. SOFT TISSUE/ABDOMINAL WALL: Fat-containing umbilical hernia . Fat stranding changes involving the le ft buttock which extends medially and out of the [id number] inferiorly. No evidence for organizing fluid collection. There is facet joint changes in the left inguinal region with lymphadenopathy salma uring up to 11 mm in short axis. IMPRESSION: No evidence for gluteal or perineum abscess in the [place]. There is phlegmonous change and fat stranding along posterior left buttocks. There is also fullness change in left inguinal region with enlarged lymph nodes. Findings favor infectious/inflammatory process. It should be noted that the extent of disease does extend out of the [id number] inferiorly.
[2023-07-22] MEDS ORDERED: CEPHALEXIN 500 MG CAP PO STA (00:02)
[2023-07-22] MEDS ORDERED: SULFAMETHOX-TMP 800-160MG 1 EACH TAB PO STA (00:02)
[2023-07-22] MEDS ORDERED: CEPHALEXIN 500MG STARTER PACK 4 CAP BTL PO STA (00:42)
[2023-07-22] MEDS ORDERED: SULFAMETH-TMP DS STARTER PACK 2 TAB BTL PO STA (00:42)
[2023-07-22 01:02] VITALS: BP 100/60; PULSE 98
== END 2023-07-22 00:52 | disposition home or self-care (01) ==
LOC: EC 20:31
DX: L02.31 Cutaneous abscess of buttock (principal); Z86.59 Personal history of other mental and behavioral disorders; Z90.49 Acquired absence of other specified parts of digestive tract
CPT/HCPCS: 80053; 85025; 72193; 99284; 96360; Q9967; 36415; 81003; 87491; 87591

== ENCOUNTER → 2025-03-06 | Outpatient (CLI) | payer BC ==
--- NOTE | 2025-03-06 16:06 | XR ---
EXAMINATION TYPE: XR cervical spine comp DATE OF EXAM: 03/06/2025 TECHNIQUE: Frontal, lateral, oblique, and open mouth view of the cervical spine are obtained. CLINICAL INDICATION: Male, 34 years old with history of M54.12 M41.9, pain COMPARISON: None FINDINGS: The cervical spine is visualized in its entirety from C1 thru the top of T1 level, it is s traight in alignment without evidence of acute fracture or dislocation. The pre-vertebral soft tissu e appears within normal limits. The C1-C2 articulation is not well evaluated on open mouth view due to dental overlap. Vertebral body heights and disc space heights are within normal limits. Overlying soft tissue is unremarkable. IMPRESSION: As above. [facility], , 03/06/2025 4:04 PM
--- NOTE | 2025-03-06 16:08 | XR ---
EXAMINATION TYPE: XR thoracic spine complete DATE OF EXAM: 03/06/2025 CLINICAL INDICATION: Male, 34 years old with history of M54.12 M41.9, pain TECHNIQUE: Frontal and lateral views of thoracic spine are obtained. COMPARISON: Thoracic spine x-ray 2017. FINDINGS: Thoracic spine show straightened alignment. Vertebral body heights and disc space heights are preserved. Visualized ribs are intact bilaterally. IMPRESSION: As above. [facility], , 03/06/2025 4:06 PM
--- NOTE | 2025-03-06 16:10 | XR ---
EXAMINATION TYPE: XR lumbar spine 2 or 3V DATE OF EXAM: 03/06/2025 CLINICAL INDICATION: Male, 34 years old with history of M54.12 M41.9, pain TECHNIQUE: Frontal and lateral images of the lumbar spine are obtained. COMPARISON: Lumbar spine x-ray 2017 FINDINGS: There are 5 lumbar type vertebral bodies identified. The lumbar spine shows stable and sa tisfactory alignment. Vertebral body heights and disk space heights remain within normal limits. Th e overlying soft tissue appears unremarkable. Stable sclerotic focus left lateral sacrum likely refle cts benign bone island. IMPRESSION: As above. [facility], , 03/06/2025 4:08 PM
== END | disposition home or self-care (01) ==
LOC: RADXRMAIN 15:29
PROVIDERS: ATTEND Family Medicine
DX: M54.12 Radiculopathy, cervical region (principal); M41.9 Scoliosis, unspecified
CPT/HCPCS: 72050; 72072; 72100

== ENCOUNTER 2025-03-31 18:25 | Emergency (ER) | payer BC ==
[2025-03-31 19:55] VITALS: BP 131/74; PULSE 68; RESP 18; TEMP 98.1
--- NOTE | 2025-03-31 20:26 | XR ---
EXAMINATION TYPE: XR finger RT DATE OF EXAM: 03/31/2025 8:03 PM COMPARISON: None. CLINICAL INDICATION: Male, 34 years old with history of 4th, pain trauma, pain TECHNIQUE: 3 view(s) obtained. FINDINGS: No acute fracture or dislocation evident. Soft tissues are unremarkable joint spaces are preserved. Follow up exams can be performed 7-10 days from acute trauma for continued pain. IMPRESSION: 1. No acute osseous abnormality right ring finger [facility], , 03/31/2025 8:23 PM
[2025-03-31] MEDS ORDERED: BACITRACIN OINT 1 EACH PACKET TOPICAL ONE (20:30)
--- NOTE | 2025-03-31 20:35 | ED ---
Upper Extremity HPI - General Chief Complaint: Extremity Injury, Upper Stated Complaint: R hand lac Time Seen by Provider: 03/31/25 19:54 Source: patient, RN notes reviewed Mode of arrival: ambulatory Limitations: no limitations - History of Present Illness Initial Comments: 34-year-old male presents emergency department chief complaint of finger punctur e from screw right hand fourth digit. Patient states tetanus up-to-date 3 years ago. Patient states there is minimal bleeding states that he was lifting an AC unit when the screw went through his finger from the attic. Patient offers no other complaints. Denies any decreased range of motion no paresthesias. - Related Data Previous Rx's Medication Instructions Recorded Cephalexin [Keflex] 500 mg PO Q6HR #40 cap 07/21/23 Sulfamethox-Tmp 800-160Mg [Bactrim 1 each PO Q12HR #20 tab 07/21/23 Ds] Cephalexin [Keflex] 500 mg PO Q6HR #28 cap 03/31/25 Allergies Allergy/AdvReac Type Severity Reaction Status Date / Time No Known Allergies Allergy Verified 03/31/25 19:55 Review of Systems ROS Statement: Those systems with pertinent positive or pertinent negative responses have been documented in the HPI. ROS Other: All systems not noted in ROS Statement are negative. Past Medical History Past Medical History: No Reported History History of Any Multi-Drug Resistant Organisms: None Reported Past Surgical History: Appendectomy Past Psychological History: Anxiety, Depression Smoking Status: Never smoker Past Alcohol Use History: Occasional Past Drug Use History: None Reported General Exam Limitations: no limitations General appearance: alert, in no apparent distress Head exam: Present: atraumatic, normocephalic, normal inspection Neck exam: Present: normal inspection. Absent: tenderness, meningismus, lymphadenopathy Respiratory exam: Present: normal lung sounds bilaterally. Absent: respiratory distress, wheezes, rales, rhonchi, stridor Cardiovascular Exam: Present: regular rate, normal rhythm, normal heart sounds. Absent: systolic murmur, diastolic murmur, rubs, gallop, clicks Extremities exam: Present: other (Right hand fourth digit palmar aspect there is a puncture wound noted full range of motion neurovascular intact no active bleeding) Course Vital Signs 03/31/25 19:52 Temperature 98.1 F Pulse Rate 68 Respiratory 18 Rate Blood Pressure 131/74 O2 Sat by Pulse 97 Oximetry Medical Decision Making - Medical Decision Making Was pt. sent in by a medical professional or institution ([facility] Garcia, [facility], urgent care, hospital, or usp...) When possible be specific @ -No Did you speak to anyone other than the patient for history (EMS, parent, family, police, friend...)? What history was obtained from this source @ -No Did you review nursing and triage notes (agree or disagree)? Why? @ -I reviewed and agree with nursing and triage notes Were old charts reviewed (outside hosp., previous admission, EMS record, old EKG, old radiological studies, urgent care reports/EKG's, usp records)? Report findings @ -No old charts were reviewed Differential Diagnosis (chest pain, altered mental status, abdominal pain women, abdominal pain men, vaginal bleeding, weakness, fever, dyspnea, syncope, headache, dizziness, GI bleed, back pain, seizure, CVA, palpatations, mental health, musculoskeletal)? @ -Finger fracture, puncture wound, laceration EKG interpreted by me (3pts min.). @ -None X-rays interpreted by me (1pt min.). @ -Right hand fourth digit no osseous abnormality CT interpreted by me (1pt min.). @ -None done U/S interpreted by me (1pt. min.). @ -None done What testing was considered but not performed or refused? (CT, X-rays, U/S, labs)? Why? @ -None What meds were considered but not given or refused? Why? @ -None Did you discuss the management of the patient with other professionals (professionals i.e. , [facility], [facility] [facility], lab, RT, psych nurse, social work program coordinator, multimedia production assistant, teacher, staff electronic warfare officer, comp field case manager)? Give summary @ -No Was smoking cessation discussed for >3mins.? @ -No Was critical care preformed (if so, how long)? @ -No Were there social determinants of health that impacted care today? How? (Homelessness, low income, unemployed, alcoholism, drug addiction, transportation, low edu. Level, literacy, decrease access to med. care, care home, rehab)? @ -No Was there de-escalation of care discussed even if they declined (Discuss DNR or withdrawal of care, Hospice)? DNR status @ -No What co-morbidities impacted this encounter? (DM, HTN, Smoking, COPD, CAD, Cancer, CVA, ARF, Chemo, Hep., AIDS, mental health diagnosis, sleep apnea, morbid obesity)? @ -None Was patient admitted / discharged? Hospital course, mention meds given and route, prescriptions, significant lab abnormalities, going to OR and other pertinent info. @ -Discharged patient has puncture wound, no active bleeding no osseous abnormality patient had bacitracin applied antibiotics Undiagnosed new problem with uncertain prognosis? @ -No Drug Therapy requiring intensive monitoring for toxicity (Heparin, Nitro, Insulin, Cardizem)? @ -No Were any procedures done? @ -No Diagnosis/symptom? @ -Puncture wound finger Acute, or Chronic, or Acute on Chronic? @ -Acute Uncomplicated (without systemic symptoms) or Complicated (systemic symptoms)? @ -Uncomplicated Side effects of treatment? @ -No Exacerbation, Progression, or Severe Exacerbation? @ -No Poses a threat to life or bodily function? How? (Chest pain, [place], [place], pneumonia, PE, COPD, DKA, ARF, appy, cholecystitis, CVA, Diverticulitis, Homicidal, Suicid al, threat to staff... and all critical care pts) @ -No Disposition Clinical Impression: Puncture wound of finger Disposition: HOME SELF-CARE Condition: Stable Instructions (If sedation given, give patient instructions): Puncture Wound (ED) Additional Instructions: Please return to the Emergency Department if symptoms worsen or any other concerns. Prescriptions: Cephalexin [Keflex] 500 mg PO Q6HR #28 cap Is patient prescribed a controlled substance at d/c from ED?: No Referrals: Evangelista Jaeger DO [Primary Care Provider] - 1-2 days Time of Disposition: 20:33
== END 2025-03-31 20:43 | disposition home or self-care (01) ==
LOC: EC 18:25
DX: S61.234A Puncture wound without foreign body of right ring finger without damage to nail, initial encounter (principal); W45.8XXA Other foreign body or object entering through skin, initial encounter
CPT/HCPCS: 99283